=== PATIENT | male | born 1955 | race Caucasian/White ===

== ENCOUNTER 2017-02-04 10:50 | Day surgery (SDC) | payer OTHER ==
--- NOTE | ~2017-02-04 | EGD ---
EGD REPORT [facility] [address] [address] NAME: JON VIERA : [birth year] STATUS : REG [facility]#: [id number] AGE: 62 ADM/REG DATE : 02/04/17 MR#: [id number] REPORT SERV DATE: 02/04/17 DICTATED BY: NICKI BURTON DATE: 02/04/17 REPORT STATUS : Draft TRANSCRIBED BY: [facility] DATE: 02/04/17 [facility] Center Patient Name: Jon Viera Date of : 1955 Attending MD: MARCELLA BURTON MD Procedure Date No Time: 02/04/2017 Procedure: Colonoscopy Indications: High risk colon cancer surveillance: Personal history adenoma >= 10 mm in size, High risk colon CA surveillance: Personal history adenoma with villous component, Last colonoscopy: August 2010 Referring MD: Ricardo Gutiérrez Medicines: See the Anesthesia note for documentation of the administered medications Complications: No immediate complications. Estimated blood loss: None. Procedure: Pre-Anesthesia Assessment: - ASA Grade Assessment: III - A patient with severe systemic disease. - Prior to the procedure, a History and Physical was performed, and patient medications and allergies were reviewed. The patient's tolerance of previous anesthesia was also reviewed. The risks and benefits of the procedure and the sedation options and risks were discussed with the patient. All questions were answered, and informed consent was obtained. Prior Anticoagulants: The patient has taken Plavix (clopidogrel), last dose was 1 day prior to procedure. After reviewing the risks and benefits, the patient was deemed in satisfactory condition to undergo the procedure. After I obtained informed consent, the scope was passed under direct vision. Throughout the procedure, the patient's blood pressure, pulse, and oxygen saturations were monitored continuously. The PCF [id number] was introduced through the anus and advanced to the cecum, identified by appendiceal orifice and ileocecal valve. The ileocecal valve, appendiceal orifice and rectum were photographed. The entire colon was examined. The colonoscopy was performed without difficulty. The patient tolerated the procedure well. The quality of the bowel preparation was adequate. Findings: The perianal and digital rectal examinations were normal. A sessile polyp was found in the distal descending colon. The polyp was 5 mm in size. The polyp was removed with a cold snare. Resection and EGD REPORT [address] [place]. [address] NAME: JON VIERA : [birth year] STATUS : REG [facility]#: [id number] AGE: 62 ADM/REG DATE : 02/04/17 MR#: [id number] REPORT SERV DATE: 02/04/17 DICTATED BY: NICKI BURTON DATE: 02/04/17 REPORT STATUS : Draft TRANSCRIBED BY: [employer] DATE: 02/04/17 retrieval were complete. A sessile polyp was found at the hepatic flexure. The polyp was 8 mm in size. The polyp was removed with a hot snare. Resection and retrieval were complete. Multiple small and large-mouthed diverticula were found in the sigmoid colon and in the descending colon. Non-bleeding internal hemorrhoids were found during retroflexion and were Grade I (internal hemorrhoids that do not prolapse). No other significant abnormalities were identified in a careful examination of the remainder of the colon. Impression: - One 5 mm polyp in the distal descending colon. Resected and retrieved. - One 8 mm polyp at the hepatic flexure. Resected and retrieved. - Diverticulosis in the sigmoid colon and in the descending colon. - Non-bleeding internal hemorrhoids. Recommendation: - Patient has a contact number available for emergencies. The signs and symptoms of potential delayed complications were discussed with the patient. Return to normal activities tomorrow. Written discharge instructions were provided to the patient. - Discharge patient to home. - High fiber diet indefinitely. - Continue present medications. - Await pathology results. - Repeat colonoscopy in 3 years for surveillance. Procedure Code(s): --- Professional --- 66106, Colonoscopy, flexible, proximal to splenic flexure; with removal of tumor(s), polyp(s), or other lesion(s) by snare technique Diagnosis Code(s): --- Professional --- D12.3, Benign neoplasm of transverse colon D12.4, Benign neoplasm of descending colon K64.0, First degree hemorrhoids K57.30, Diverticulosis of large intestine without perforation or abscess without bleeding Z86.010, Personal history of colonic polyps CPT copyright 2013 [employer]. All rights reserved. The codes documented in this report are preliminary and upon purification operator helper review may EGD REPORT [facility] [address] [address] NAME: JON VIERA : [birth year] STATUS : REG [facility] PAT#: [id number] AGE: 62 ADM/REG DATE : 02/04/17 MR#: [id number] REPORT SERV DATE: 02/04/17 DICTATED BY: NICKI BURTON DATE: 02/04/17 REPORT STATUS : Draft TRANSCRIBED BY: [employer] DATE: 02/04/17 be revised to meet current compliance requirements. MARCELLA BURTON MD 02/04/2017 12:19 PM This report has been signed electronically. Number of Addenda: 0 Note Initiated On: 02/04/2017 11:46 AM Scope Withdrawal Time 0 hours 13 minutes 38 seconds [id number] [facility] [id number]
[~2017-02-04 10:50] MED LIST: FOLIC PO; LOP25 PO; LOSARTAN PO; NYQUIL OR; PLAVIX PO; PRIN10 PO; [UNRECOGNIZED DRUG - OTHER] OR
== END 2017-02-04 23:59 | disposition home or self-care (01) ==
LOC: DMU 10:50
PROVIDERS: Internal Medicine Gastroenterology
PROC: 0DBM8ZX Excision of Descending Colon, Via Natural or Artificial Opening Endoscopic, Diagnostic (ICD-10-PCS; principal; 2017-02-04 12:00)
PROC: 0DBK8ZX Excision of Ascending Colon, Via Natural or Artificial Opening Endoscopic, Diagnostic (ICD-10-PCS; 2017-02-04 12:00)
DX: Z12.11 Encounter for screening for malignant neoplasm of colon (principal); K63.5 Polyp of colon; K64.0 First degree hemorrhoids; K57.30 Diverticulosis of large intestine without perforation or abscess without bleeding; I25.10 Atherosclerotic heart disease of native coronary artery without angina pectoris; I10 Essential (primary) hypertension; Z86.010 Personal history of colon polyps; Z79.899 Other long term (current) drug therapy; F17.210 Nicotine dependence, cigarettes, uncomplicated; Z98.41 Cataract extraction status, right eye; Z98.42 Cataract extraction status, left eye; Z98.890 Other specified postprocedural states
CPT/HCPCS: 88305